=== PATIENT | female | born 1985 | race Native Hawaiian/Other Pacific Islander ===

== ENCOUNTER 2020-02-08 09:03 | Emergency (ER) | payer MEDICAID ==
[2020-02-08 09:11] VITALS: BP 105/54
--- NOTE | 2020-02-08 09:50 | Emergency Department Report ---
ED Female HPI - General Chief complaint: Abdominal Pain Stated complaint: 11 WKS PREG STOMACH PAIN Time Seen by Provider: 02/08/20 09:46 Source: patient Mode of arrival: Ambulatory Limitations: No Limitations - History of Present Illness Initial comments: 34-year-old [place] female presents to the emergency room complaining of pelvic cramping patient denies any dysuria, hematuria, vaginal bleeding or vaginal discharge. She denies any fever chills no nausea no vomiting. That started about 4 AM this morning. Patient reports that she is approximate 11 weeks and has not started care. Patient reports that she is 4 para 3 last menstrual period 11/15/2019. Patient reports she has no prior OB complications. MD Complaint: pelvic pain - Related Data Previous Rx's Medication Instructions Recorded Last Taken Type Vit-Fe Fumar-FA [ 1 tab PO QDAY #90 tablet 02/08/20 Unknown Rx Vitamin] Allergies Allergy/AdvReac Type Severity Reaction Status Date / Time No Known Allergies Allergy Unverified 02/08/20 09:07 ED Review of Systems ROS: Stated complaint: 11 WKS PREG STOMACH PAIN Other details as noted in HPI ED Past Medical Hx - Past Medical History Previous Medical History?: No - Social History Smoking Status: Smoker, Current Status Unknown - Medications Home Medications: Home Medications Medication Instructions Recorded Confirmed Last Taken Type Vit-Fe Fumar-FA [ 1 tab PO QDAY #90 tablet 02/08/20 Unknown Rx Vitamin] ED Physical Exam - General Limitations: No Limitations General appearance: alert, in distress - Head Head exam: Present: atraumatic - Eye Eye exam: Present: normal appearance - ENT ENT exam: Present: mucous membranes moist - Neck Neck exam: Present: normal inspection, full ROM - Neurological Exam Neurological exam: Present: alert, oriented X3, normal gait - Psychiatric Psychiatric exam: Present: normal affect, normal mood ED Course Vital Signs 02/08/20 09:08 Temperature 98.2 F Pulse Rate 77 Respiratory 20 Rate Blood Pressure 105/54 O2 Sat by Pulse 98 Oximetry ED Medical Decision Making - Lab Data Laboratory Tests 02/08/20 02/08/20 09:49 10:55 WBC 9.4 RBC 3.56 L Hgb 11.6 Hct 34.1 MCV 96 MCH 33 H MCHC 34 RDW 13.1 L Plt Count 270 Urine Color Yellow Urine Turbidity Hazy Urine pH 9.0 H Ur Specific [place] 1.019 Urine Protein 30 mg/dl Urine Glucose (UA) Neg Urine Ketones Neg Urine Blood Neg Urine Nitrite Neg Urine Bilirubin Neg Urine Urobilinogen < 2.0 Ur Leukocyte Esterase Neg Urine WBC (Auto) 1.0 Urine RBC (Auto) 7.0 U Epithel Cells (Auto) 3.0 Amorphous Crystals 1+ Urine Mucus Few - Radiology Data Radiology results: report reviewed Patient: JOSE ADAN MR#: [id number] : 1985 Acct:[id number] Age/Sex: 34 / F ADM Date: 02/08/20 Loc: ED Attending Dr: Ordering Physician: MARTHA JOHNSON Date of Service: 02/08/20 Procedure(s): US OB <= 14 wk fetus add gest Accession Number(s): [id number] cc: MARTHA JOHNSON OBSTETRICAL ULTRASOUND. HISTORY: Pelvic cramping. FINDINGS: Imaging was performed transabdominally. A single viable intrauterine is dated 12 weeks 1 day. heart tones are 150 bpm. No bleed is identified. Right ovary measures 3.5 x 2.3 cm. Left ovary measures 4.4 x 1.5 cm. Both ovaries demonstrate flow. IMPRESSION: 1. Early viable intrauterine dated 12 weeks 1 day. 2. No adnexal abnormality. Signer Name: Dk Ortega MD Signed: 02/08/2020 10:48 AM Workstation Name: [id number] Transcribed By: ES Dictated By: Dk Ortega MD Electronically Authenticated By: Dk Ortega MD Signed Date/Time: 02/08/20 1048 DD/ 1046 TD/TT: - Medical Decision Making 34-year-old [place] female presents to the emergency room complaining of pelvic cramping patient denies any dysuria, hematuria, vaginal bleeding or vaginal discharge. She denies any fever chills no nausea no vomiting. That started about 4 AM this morning. Patient reports that she is approximate 11 weeks and has not started care. Patient reports that she is 4 para 3 last menstrual period 11/15/2019. Patient reports she has no prior OB complications. CBC, CMP, hCG, urinalysis, ultrasound and transvaginal less than 14 weeks gestation. Critical care attestation.: If time is entered above; I have spent that time in minutes in the direct care of this critically ill patient, excluding procedure time. ED Disposition Clinical Impression: Pelvic cramping Disposition: DC-01 TO HOME OR SELFCARE Is pt being admited?: No Does the pt Need Aspirin: No Condition: Stable Instructions: Abdominal Pain (ED) Additional Instructions: Ultrasound shows that you are 12 weeks and 1 day . There is no complications with the fetus. You can take Tylenol for pain. Urinalysis was negative for any infection. I highly recommend that she follow-up with a [facility]. Prescriptions: Vit-Fe Fumar-FA [ Vitamin] 1 tab PO QDAY #90 tablet Referrals: [facility] [Provider Group] - 3-5 Days [facility] [Provider Group] - 3-5 Days [facility] [Provider Group] - 3-5 Days
[2020-02-08 10:13] LABS: Amorphous Crystals,Urine 1+; Bilirubin,Urine NEG (Negative); Blood,Urine NEG (Negative); Color,Urine Yellow (Yellow); Mucus,Urine FEW /HPF; Urobilinogen,Urine < 2.0 mg/dL (<2.0)
--- NOTE | 2020-02-08 10:52 | Ultrasound Report ---
OBSTETRICAL ULTRASOUND. HISTORY: Pelvic cramping. FINDINGS: Imaging was performed transabdominally. A single viable intrauterine is dated 12 weeks 1 day. heart tones are 150 bpm. No ble ed is identified. Right ovary measures 3.5 x 2.3 cm. Left ovary measures 4.4 x 1.5 cm. Both ovaries demonstrate flow. IMPRESSION: 1. Early viable intrauterine dated 12 weeks 1 day. 2. No adnexal abnormality. Signer Name: Dk Ortega MD Signed: 02/08/2020 10:48 AM Workstation Name: [id number]
[2020-02-08 11:32] LABS: Hematocrit 34.1 % (30.3-42.9); Hemoglobin 11.6 gm/dl (10.1-14.3); Mean Corpuscular HGB Conc 34 % (30-34); Mean Corpuscular Volume 96 fl (79-97); Platelet Count 270 K/mm3 (140-440); Red Blood Count 3.56 M/mm3 (3.65-5.03); Red Cell Distribution Width 13.1 % (13.2-15.2)
[2020-02-08 11:57] LABS: Alanine Aminotransferase 16 units/L (7-56); Albumin 3.9 g/dL (3.9-5); Blood Urea Nitrogen 11 mg/dL (7-17); Calcium 8.7 mg/dL (8.4-10.2); Hemolysis Index 5
[2020-02-08 12:28] LABS: BUN/Creatinine Ratio 28
== END 2020-02-08 11:53 | disposition home or self-care (01) ==
LOC: ED 09:03
DX: O26.891 Other specified pregnancy related conditions, first trimester (principal); R10.2 Pelvic and perineal pain; O99.331 Smoking (tobacco) complicating pregnancy, first trimester; Z3A.11 11 weeks gestation of pregnancy
CPT/HCPCS: 36415; 76801; 76802; 80053; 81001; 84702; 85027; 86850; 86900; 86901

== ENCOUNTER 2020-08-08 02:45 | Inpatient (IN) | payer MEDICAID ==
[2020-08-08] MEDS ORDERED: AMPICILLIN/NS 2 GM/100 ML 2 GM/100 ML BAG IV ONE (04:00)
[2020-08-08] MEDS ORDERED: LACTATED RINGERS 1,000 ML ONE (04:08)
[2020-08-08 04:11] LABS: Hematocrit 32.5 % (30.3-42.9); Hemoglobin 11.2 gm/dl (10.1-14.3); Mean Corpuscular HGB Conc 35 % (30-34); Mean Corpuscular Volume 93 fl (79-97); Platelet Count 347 K/mm3 (140-440); Red Blood Count 3.51 M/mm3 (3.65-5.03); Red Cell Distribution Width 13.3 % (13.2-15.2)
[2020-08-08] MEDS ORDERED: fentaNYL 100 MCG/2 ML INJ IV PRN (04:23)
[2020-08-08] MEDS ORDERED: TERBUTALINE 1 MG/1 ML INJ SUB-Q PRN (04:23)
[2020-08-08] MEDS ORDERED: MINERAL OIL 30 ML ORAL LIQD PO PRN (04:23)
[2020-08-08] MEDS ORDERED: LIDOCAINE (2%) 20 MG/1 ML VIAL 20 ML MDV INFILTRATI ONE (04:23)
[2020-08-08] MEDS ORDERED: ONDANSETRON 4 MG/2 ML INJ IV PRN (04:23)
[2020-08-08] MEDS ORDERED: ePHEDrine SULFATE 50 MG/1 ML INJ IV PRN ×2 (04:23→08:49)
[2020-08-08] MEDS ORDERED: BUTORPHANOL 2 MG/1 ML INJ IV PRN (04:23)
[2020-08-08] MEDS ORDERED: NALOXONE 0.4 MG/1 ML INJ IV PRN (04:23)
[2020-08-08] MEDS ORDERED: LACTATED RINGERS 1,000 ML IV SCH (04:30)
[2020-08-08] MEDS ORDERED: OXYTOCIN DRIP 30 UNITS/500 ML BAG IV SCH ×2 (05:00)
[2020-08-08] MEDS ORDERED: NalbUPHINE 10 MG/1 ML INJ IV PRN (06:18)
--- NOTE | 2020-08-08 06:39 | History and Physical Report ---
History of Present Illness Date of examination: 08/08/20 Date of admission: 08/08/20 05:07 Chief complaint: leakage of fluid at 2:15am today History of present illness: at 38.1wks by LMP c/w U/S. Pt c/o LOF and vaginal spotting at home and ctx. Admits to movement. Past History Past Medical History: hepatitis ( chronic Hep B without treatment ) Past Surgical History: no surgical history Social history: no significant social history - Obstetrical History Expected Date of Delivery: 08/21/20 Actual Gestation: 38 Week(s) 1 Day(s) : 5 (polyhydramnios, hep B, GBS+ this preg) Hx # Term Pregnancies: 3 Spontaneous Abortions: 1 Number of Living Children: 3 Medications and Allergies Allergies Allergy/AdvReac Type Severity Reaction Status Date / Time No Known Allergies Allergy Unverified 02/08/20 09:07 Home Medications Medication Instructions Recorded Confirmed Last Taken Type Vit-Fe Fumar-FA [ 1 tab PO QDAY #90 tablet 02/08/20 Unknown Rx Vitamin] Active Meds: Active Medications Butorphanol Tartrate (Butorphanol 2 Mg/1 Ml Inj) 2 mg IV Q2H PRN PRN Reason: Pain , Severe (7-10) Ephedrine Sulfate (Ephedrine Sulfate 50 Mg/1 Ml Inj) 10 mg IV Q2M PRN PRN Reason: Hypotension Fentanyl (Fentanyl 100 Mcg/2 Ml Inj) 100 mcg IV Q2H PRN PRN Reason: Pain,Severe (7-10) LABOR PAIN Ampicillin Sodium (Ampicillin/Ns 1 Gm/50 Ml) 1 gm in 50 mls @ 100 mls/hr IV Q4H SHEKHAR; Protocol Oxytocin/Sodium Chloride (Pitocin/Ns 30 Unit/500ml) 30 units in 500 mls @ 2 mls/hr IV TITR SHEKHAR; Protocol Lactated Ringer's (Lactated Ringers) 1,000 mls @ 125 mls/hr IV DIRECT SHEKHAR Oxytocin/Sodium Chloride (Pitocin/Ns 30 Unit/500ml) 30 units in 500 mls @ 40 mls/hr IV TITR SHEKHAR; Protocol Mineral Oil (Mineral Oil 30 Ml Oral Liqd) 30 ml PO QHS PRN PRN Reason: Constipation Nalbuphine HCl (Nalbuphine 10 Mg/1 Ml Inj) 10 mg IV Q2H PRN PRN Reason: Pain, Moderate (4-6) Naloxone HCl (Naloxone 0.4 Mg/1 Ml Inj) 0.1 mg IV Q2MIN PRN PRN Reason: Res Rate </= 8 or 02 SAT < 92% Ondansetron HCl (Ondansetron 4 Mg/2 Ml Inj) 4 mg IV Q8H PRN PRN Reason: Nausea And Vomiting Terbutaline Sulfate (Terbutaline 1 Mg/1 Ml Inj) 0.25 mg SUB-Q ONCE PRN PRN Reason: Hyperstimulation/Hypertonicity Review of Systems All systems: negative (LOF, ctx and vaginal spotting) - Vital Signs Vital signs: Vital Signs Pulse BP Pulse Ox 92 H 99/68 98 08/08/20 03:19 08/08/20 03:19 08/08/20 03:19 Temp Pulse Resp BP Pulse Ox 98.5 F 89 20 99/68 100 08/08/20 03:20 08/08/20 06:30 08/08/20 03:20 08/08/20 03:19 08/08/20 06:30 - Physical Exam Breasts: Positive: deferred Cardiovascular: Regular rate Lungs: Positive: Normal air movement Genitourinary (Female): Positive: normal external genitalia Vulva: both: normal Vagina: Positive: normal moisture Uterus: Positive: enlarged (non-tender gravid) Anus/Rectum: Positive: normal perianal skin Extremities: Positive: normal - Obstetrical FHR: category 1 Uterine Contraction Monitor Mode: External Cervical Dilatation: 4 (previously 3cm on admit) Cervical Effacement Percentage: 100 station: -1 Results Result Diagrams: 08/08/20 Unknown Abnormal lab results 08/08/20 08/08/20 Range/Units 03:13 Unknown RBC 3.51 L (3.65-5.03) M/mm3 MCHC 35 H (30-34) % Membranes Rupture Positive A (Negative) All other labs normal. Assessment and Plan Grand multiparous at 38.1wks in active labor, SROM and now with forebag, ho yhydramnios; Chronic Hepatitis B, GBS+ 1. Admit to labor and delivery 2. Amp for GBS positive given 3. AROM done for forebag with large amount of clear fluid 4. May have epidural or IV pain med as needed 5. Peds to be notified of chronic Hep B status and tx for infant accordingly 6. Will add CMP for LFT's All questions encouraged and answered; Expect
[2020-08-08] MEDS ORDERED: AMPICILLIN/NS 1 GM/50 ML 1 GM/50 ML BAG IV SCH (08:00)
[2020-08-08] MEDS ORDERED: NALOXONE 2 MG/2 ML INJ IV PRN (08:49)
--- NOTE | 2020-08-08 08:50 | Anesthesia Consultation ---
Anesthesia Consult and Med Hx Date of service: 08/08/20 - Airway Anesthetic Teeth Evaluation: Good ROM Head & Neck: Adequate Mental/Hyoid Distance: Adequate Mallampati Class: Class II Intubation Access Assessment: Probably Good - Pulmonary Exam CTA: Yes - Cardiac Exam Cardiac Exam: RRR - Pre-Operative Health Status ASA Pre-Surgery Classification: ASA2 Proposed Anesthetic Plan: Epidural - Pulmonary Hx Asthma: No - Cardiovascular System Hx Hypertension: No - Central Nervous System Hx Seizures: No Hx Psychiatric Problems: No - Endocrine Hx Renal Disease: No Hx Liver Disease: Yes (hep b) Hx Hypothyroidism: No Hx Hyperthyroidism: No - Hematic Hx Anemia: No Hx Sickle Cell Disease: No - Other Systems Hx Alcohol Use: No
[2020-08-08] MEDS ORDERED: fentaNYL-BUPIV 2 MCG/ML-0.125% 200 MCG/100 ML BAG EPIDURAL SCH (09:00)
--- NOTE | 2020-08-08 09:12 | Progress Note ---
Labor Epidural - Labor Epidural Start Time: 08:51 Stop Time: 08:54 Performed by:: V[place] DO Procedure: Patient sat up, prepped and draped for epidural placement, c/o pressure, pt laid back down and delivered baby.
--- NOTE | 2020-08-08 09:32 | Procedure Note ---
OB Delivery Note - Delivery Date of Delivery: 08/08/20 (0850) Surgeon: BRUNO LAZCANO (CNM) Estimated blood loss: other (400cc) - Vaginal Delivery presentation: vertex Delivery position: OA Intrapartum events: none Delivery induction: none Delivery augmentation: rupture of membranes (SROM 0215, clear) Delivery monitor: external FHT, external uterine Route of delivery: Delivery placenta: spontaneous (0857) Delivery cord: nuchal cord (x1, loose), 3 umbilical vessels Episiotomy: none Delivery laceration: none Anesthesia: none Delivery comments: Received call from nurse stating, "she sat up for the epidural and the baby came out". Upon arrival to room, found alert, pink, crying . Cord double clamped and cut, disposed. Uterus firm @ U-2, hemostasis maintained. Perineum intact. Mother and baby safe, stable and left in care of RN. - A at 1 minute: 8 at 5 minutes: 9 Gender: Female (Weight: 2579 gms (5lbs 11ozs) 18.5 inches)
[2020-08-08] MEDS ORDERED: LANOLIN/ZINC/DIMETHICONE (LANSINOH) 7 GM TP PRN (10:00)
[2020-08-08] MEDS ORDERED: oxyCODONE /ACETAMINOPHEN 5-325MG TAB PO PRN (10:00)
[2020-08-08] MEDS ORDERED: PROMETHAZINE 25 MG TAB PO PRN (10:00)
[2020-08-08] MEDS ORDERED: WITCH HAZEL/ GLYCERIN PAD TP PRN (10:00)
[2020-08-08] MEDS: IBUPROFEN 600 MG TAB PO SCH ×3 (10:00→22:33)
[2020-08-08] MEDS ORDERED: diphenhydrAMINE 25 MG CAP PO PRN (10:00)
[2020-08-08 21:21] LABS: Hematocrit 27.1 % (30.3-42.9); Hemoglobin 9.2 gm/dl (10.1-14.3)
[2020-08-08] MEDS ORDERED: MAGNESIUM HYDROXIDE (MOM) ORAL LIQD UDC PO PRN (22:00)
[2020-08-09] MEDS: IBUPROFEN 600 MG TAB PO SCH (04:16)
--- NOTE | 2020-08-09 11:55 | Progress Note ---
Assessment and Plan A: PP Day #1 Stable P: Follow Routine Orders D/C home today per patient request Depo Provera 150mg IM prior to discharge RTO in 6 Weeks Subjective - Subjective Date of service: 08/09/20 Patient reports: appetite normal, voiding normally, pain well controlled, flatus, ambulating normally [place]: doing well, bottle feeding (and ) Objective - Vital Signs Latest vital signs: Vital Signs Temp Pulse Resp BP BP Pulse Ox 08/09/20 07:39 98.3 F 73 18 99/60 99 08/09/20 01:07 98.6 F 74 16 99/74 08/08/20 20:12 99.0 F 97 H 18 94/48 100 08/08/20 16:25 97.9 F 88 18 96/55 98 Intake and Output 08/08/20 08/09/20 08/09/20 22:59 06:59 14:59 Intake Total 420 500 360 Balance 420 500 360 Intake: Oral 120 200 120 Intake, Free Water 300 300 240 Other: Total, Intake Amount 120 200 120 # Voids Void 1 1 1 - Exam Breasts: Present: normal Cardiovascular: Present: Regular rate Lungs: Present: Clear to auscultation, Normal air movement Abdomen: Present: normal appearance, soft, normal bowel sounds Vulva: right: atrophy Uterus: Present: normal, firm, fundal height below umbilicus Extremities: Present: normal - Labs Labs: Abnormal lab results 08/08/20 Range/Units 20:55 Hgb 9.2 L (10.1-14.3) gm/dl Hct 27.1 L (30.3-42.9) %
[2020-08-09] MEDS ORDERED: medroxyPROGESTERone ACETATE 150 MG/ML SYRINGE IM NR (11:56)
--- NOTE | 2020-08-09 11:58 | Discharge Summary ---
Providers - Providers Date of Admission: 08/08/20 05:07 Date of discharge: 08/09/20 Attending physician: LULU VARMA Primary care physician: LULU VARMA Hospitalization Reason for admission: active labor Delivery: Episiotomy: none Laceration: none Other procedures: none complications: none Discharge diagnosis: IUP at term delivered [place] baby: female Condition at discharge: Good Disposition: DC-01 TO HOME OR SELFCARE Plan - Provider Discharge Summary Activity: routine, no sex for 6 weeks, no heavy lifting 4 weeks, no strenuous exercise Diet: routine Instructions: routine Additional instructions: [] Smoking cessation referral if applicable(refer to patient education folder for contact #) [] Refer to [facility]'s [facility] Booklet Call your doctor immediately for: * Fever > 100.5 * Heavy vaginal bleeding ( >1 pad per hour) * Severe persistent headache * Shortness of breath * Reddened, hot, painful area to leg or breast * Drainage or odor from incision. * Keep incision clean and dry at all times and follow doctor's instructions regarding bathing/showering - Follow up plan Follow up: DESMOND BELL MD [Staff Physician] - 6 Weeks
[2020-08-09 13:52] VITALS: BP 93/58
== END 2020-08-09 14:15 | disposition home or self-care (01) | DRG 774 ==
LOC: TRG 02:45 → APU 02:50 → TRG 05:05 → LD 05:07 → OB 11:06
PROVIDERS: ADMIT Obstetrics & Gynecology; ATTEND Obstetrics & Gynecology
PROC: 10E0XZZ Delivery of Products of Conception, External Approach (ICD-10-PCS; principal; 2020-08-08)
PROC: 10907ZC Drainage of Amniotic Fluid, Therapeutic from Products of Conception, Via Natural or Artificial Opening (ICD-10-PCS; 2020-08-08)
DX: O69.81X0 Labor and delivery complicated by cord around neck, without compression, not applicable or unspecified (principal); O98.42 Viral hepatitis complicating childbirth; O99.824 Streptococcus B carrier state complicating childbirth; O40.3XX0 Polyhydramnios, third trimester, not applicable or unspecified; B18.1 Chronic viral hepatitis B without delta-agent; Z20.822 Contact with and (suspected) exposure to COVID-19; Z3A.38 38 weeks gestation of pregnancy; Z37.0 Single live birth
CPT/HCPCS: 36415; 59025; 84112; 85014; 85018; 85027; 86850; 86900; 86901; G0378; J0290; J0595; J1050; J2590; U0003